=== PATIENT | male | born 1980 | race Caucasian/White ===

== ENCOUNTER 2018-08-16 05:35 | Day surgery (SDC) | payer OTHER ==
[2018-08-16] MEDS: CEFAZOLIN 2 GM/50 ML (PMX) 50 ML IVPB (06:00)
[2018-08-16] MEDS: LACTATED RINGER'S 1,000 ML IV* (06:00)
[2018-08-16 06:37] LABS: ADD MAN DIFF? NO
[2018-08-16 06:56] LABS: BASOPHILS % 0.4 % (0.0-2.0); EOSINOPHILS # 0.2 10^3/ul (0.0-0.5); EOSINOPHILS % 2.6 % (0.0-7.0); HEMATOCRIT 44.6 % (42.0-52.0); HEMOGLOBIN 14.9 g/dl (14.0-18.0); LYMPHOCYTES # 2.2 10^3/ul (0.8-2.9); LYMPHOCYTES % 38.4 % (15.0-51.0); MEAN CORPUSCULAR HEMOGLOBIN 30.3 pg (29.0-33.0); MEAN CORPUSCULAR HGB CONC 33.4 g/dl (32.0-37.0); MEAN CORPUSCULAR VOLUME 90.7 fl (82.0-101.0); MEAN PLATELET VOLUME 11.6 fl (7.4-10.4); MONOCYTE # 0.6 10^3/ul (0.3-0.9); MONOCYTES % 10.7 % (0.0-11.0); NEUTROPHIL # 2.7 10^3/ul (1.6-7.5); NEUTROPHILS % 47.7 % (39.0-77.0); PLATELET COUNT 139 10^3/UL (140-415); POSITIVE DIFF @See below; RED BLOOD COUNT 4.92 10^6/ul (4.70-6.10); RED CELL DISTRIBUTION WIDTH 12.2 % (11.5-14.5)
[2018-08-16 06:56] LABS: WHITE BLOOD COUNT 5.7 10^3/ul (4.8-10.8)
[2018-08-16] MEDS ORDERED: PROPOFOL 200 MG INJ (07:00)
[2018-08-16 07:12] LABS: INR 0.97
[2018-08-16 07:13] LABS: PARTIAL THROMBOPLASTIN TIME 27.3 Sec (23.0-35.0)
[2018-08-16 07:18] LABS: ALANINE AMINOTRANSFERASE 22 IU/L (13-69); ALBUMIN 4.3 g/dl (3.3-4.9); ALKALINE PHOSPHATASE 45 IU/L (42-121); ANION GAP 8 (5-13); ASPARTATE AMINO TRANSFERASE 25 IU/L (15-46); BILIRUBIN,INDIRECT 0.3 mg/dl (0-1.1); BILIRUBIN,TOTAL 0.3 mg/dl (0.2-1.3); BLOOD UREA NITROGEN 20 mg/dl (7-20); CALCIUM 9.2 mg/dl (8.4-10.2); CARBON DIOXIDE 30 mmol/L (21-31); CHLORIDE 105 mmol/L (97-110); CREATININE 0.92 mg/dl (0.61-1.24); Estimated GFR > 60 mL/min (>60); GLUCOSE 84 mg/dl (70-220); POTASSIUM 4.2 mmol/L (3.5-5.1); SODIUM 143 mmol/L (135-144); TOTAL PROTEIN 7.6 g/dl (6.1-8.1)
[2018-08-16] MEDS: BUPIVACAINE 0.5% (SDV) 30 ML INJ (07:19)
[2018-08-16] MEDS: LIDOCAINE 1% (MPF) 30 ML INJ (07:20)
[2018-08-16] MEDS: POLYMYXIN/BACITRACIN 1L IRRIG (07:20)
[2018-08-16] MEDS ORDERED: OXYCODONE/ACETAMINOPHEN (5/325) TAB PO ×2 (07:30)
[2018-08-16] MEDS ORDERED: DIPHENHYDRAMINE 50 MG INJ IV (07:30)
[2018-08-16] MEDS ORDERED: HYDROmorphONE 1 MG/5 ML IV SYRINGE IV ×3 (07:30)
[2018-08-16] MEDS ORDERED: PROPOFOL 20 ML (07:38)
[2018-08-16] MEDS ORDERED: ONDANSETRON 4 MG INJ (07:38)
[2018-08-16] MEDS ORDERED: HYDROmorphONE 2 MG/ML SYG (07:38)
[2018-08-16] MEDS ORDERED: METOCLOPRAMIDE 10 MG INJ (07:38)
[2018-08-16] MEDS ORDERED: CEFAZOLIN 1 GM INJ (07:38)
[2018-08-16] MEDS ORDERED: ROPIVACAINE 0.2% 20 ML VIAL (07:38)
[2018-08-16] MEDS ORDERED: MIDAZOLAM 1 MG/ML 2 ML INJ (07:38)
[2018-08-16] MEDS ORDERED: KETOROLAC 30 MG INJ (07:59)
[2018-08-16] MEDS: ONDANSETRON 4 MG INJ IV (10:10)
[2018-08-16] MEDS: MEPERIDINE 25 MG INJ IV (10:10)
== END 2018-08-16 12:05 | disposition home or self-care (01) ==
LOC: SDS 05:35
DX: S52.571A Other intraarticular fracture of lower end of right radius, initial encounter for closed fracture (principal); S62.001A Unspecified fracture of navicular [scaphoid] bone of right wrist, initial encounter for closed fracture; S62.121A Displaced fracture of lunate [semilunar], right wrist, initial encounter for closed fracture; S63.511A Sprain of carpal joint of right wrist, initial encounter; G56.01 Carpal tunnel syndrome, right upper limb; W21.02XA Struck by soccer ball, initial encounter
CPT/HCPCS: 25608; 71045; 73110-RT; 80053; 85025; 85610; 85730; 93005

== ENCOUNTER 2018-11-08 08:47 | Day surgery (SDC) | payer OTHER ==
[~2018-11-08 08:47] MED LIST: CEFAZOLIN 2 GM/50 ML (PMX) 50 ML IVPB; LACTATED RINGER'S 1,000 ML IV*
[2018-11-08 09:47] LABS: ADD MAN DIFF? NO
[2018-11-08 09:49] LABS: BASOPHILS % 0.4 % (0.0-2.0); EOSINOPHILS # 0.2 10^3/ul (0.0-0.5); EOSINOPHILS % 4.3 % (0.0-7.0); HEMATOCRIT 47.8 % (42.0-52.0); HEMOGLOBIN 16.3 g/dl (14.0-18.0); LYMPHOCYTES # 1.8 10^3/ul (0.8-2.9); LYMPHOCYTES % 37.2 % (15.0-51.0); MEAN CORPUSCULAR HEMOGLOBIN 30.5 pg (29.0-33.0); MEAN CORPUSCULAR HGB CONC 34.1 g/dl (32.0-37.0); MEAN CORPUSCULAR VOLUME 89.5 fl (82.0-101.0); MEAN PLATELET VOLUME 11.7 fl (7.4-10.4); MONOCYTE # 0.5 10^3/ul (0.3-0.9); MONOCYTES % 10.4 % (0.0-11.0); NEUTROPHIL # 2.2 10^3/ul (1.6-7.5); NEUTROPHILS % 47.5 % (39.0-77.0); PLATELET COUNT 137 10^3/UL (140-415); POSITIVE DIFF @See below; RED BLOOD COUNT 5.34 10^6/ul (4.70-6.10); RED CELL DISTRIBUTION WIDTH 12.3 % (11.5-14.5)
[2018-11-08 09:49] LABS: WHITE BLOOD COUNT 4.7 10^3/ul (4.8-10.8)
[2018-11-08 10:08] LABS: INR 0.95; PROTIME 12.8 Sec (11.9-14.9)
[2018-11-08 10:09] LABS: ANION GAP 10 (5-13); BLOOD UREA NITROGEN 15 mg/dl (7-20); CALCIUM 9.7 mg/dl (8.4-10.2); CARBON DIOXIDE 27 mmol/L (21-31); CHLORIDE 106 mmol/L (97-110); CREATININE 0.93 mg/dl (0.61-1.24); Estimated GFR > 60 mL/min (>60); GLUCOSE 89 mg/dl (70-220); PARTIAL THROMBOPLASTIN TIME 25.2 Sec (23.0-35.0); POTASSIUM 4.1 mmol/L (3.5-5.1); SODIUM 143 mmol/L (135-144)
[2018-11-08] MEDS ORDERED: PROPOFOL 100 ML (10:44)
[2018-11-08] MEDS ORDERED: CEFAZOLIN 1 GM INJ ×2 (10:57→11:16)
[2018-11-08] MEDS ORDERED: DEXAMETHASONE 4 MG/ML 5 ML INJ (10:59)
[2018-11-08] MEDS ORDERED: ONDANSETRON 4 MG INJ (11:00)
[2018-11-08] MEDS ORDERED: POLYMYXIN/BACITRACIN 1L IRRIG (11:06)
[2018-11-08] MEDS: BUPIVACAINE 0.5% (SDV) 30 ML INJ (11:13)
[2018-11-08] MEDS ORDERED: EPHEDrine SULFATE 50 MG/5 ML SYG IV (12:00)
[2018-11-08] MEDS ORDERED: ALBUTEROL 0.083% (NEB) 2.5 MG/3 ML AMP HHN (12:00)
[2018-11-08] MEDS ORDERED: hydrALAzine 20 MG INJ IV (12:00)
[2018-11-08] MEDS ORDERED: FENTAnyl 50 MCG/ML VIAL IV ×3 (12:00)
[2018-11-08] MEDS ORDERED: HYDROmorphONE 1 MG/5 ML IV SYRINGE IV ×2 (12:00)
[2018-11-08] MEDS ORDERED: LABETALOL HCL 20MG INJ IV (12:00)
[2018-11-08] MEDS ORDERED: DIPHENHYDRAMINE 50 MG INJ IV (12:00)
[2018-11-08] MEDS ORDERED: KETOROLAC 30 MG INJ IV (12:00)
[2018-11-08] MEDS ORDERED: MEPERIDINE 25 MG INJ IV (12:00)
[2018-11-08] MEDS ORDERED: OXYCODONE/ACETAMINOPHEN (5/325) TAB PO ×2 (12:00)
[2018-11-08] MEDS: HYDROmorphONE 1 MG/5 ML IV SYRINGE IV (12:34)
== END 2018-11-08 13:47 | disposition home or self-care (01) ==
LOC: SDS 08:47
DX: T84.84XA Pain due to internal orthopedic prosthetic devices, implants and grafts, initial encounter (principal); M25.531 Pain in right wrist; R00.1 Bradycardia, unspecified; X58.XXXA Exposure to other specified factors, initial encounter; Y93.89 Activity, other specified; Y92.89 Other specified places as the place of occurrence of the external cause; Y99.8 Other external cause status
CPT/HCPCS: 20680; 71045; 73110-RT; 80048; 85025; 85610; 85730; 88300; 93005